=== PATIENT | male | born 1990 | race Caucasian/White ===

== ENCOUNTER 2016-11-15 23:38 | Emergency (ER) | payer SELFPAY ==
[~2016-11-15] VITALS: Ht 182.9 cm; Wt 90.7 kg
[2016-11-16] MEDS ORDERED: CEPH-264 PO
[2016-11-16] MEDS ORDERED: SULF1TAB24 PO
--- NOTE | 2016-11-16 | PHYS DOC ---
Adult General Chief Complaint Chief Complaint: SKIN PROBLEM HPI HPI Patient is a 26 year old M who presents with a left axillary abscess. Patient states that one of his friends who is a nurse used a scalpel and lanced it at home prior to coming in. Patient states he did get purulent drainage from it. Patient came in for further evaluation. Patient has no other symptoms. Patient denies any fevers. Patient denies any chest pain or shortness of breath. Patient states the abscesses that if the past 3 days to grow in size. Patient states she's never had symptoms like this before. Review of Systems Review of Systems GEN: Denies fevers, chills, sweats HEENT: Denies blurred vision, sore throat CV: Denies chest pain RESP: Denies shortness of air, cough GI: Denies n/v/d NEURO: Denies confusion, dizziness MSK: Left axillary abscess Physical Exam Physical Exam GEN.: No apparent distress. Alert and oriented. HEENT: Head is normocephalic, atraumatic NECK: Supple. LUNGS: CTAB. HEART: RRR, S1, S2 present. Peripheral pulses intact ABDOMEN: Soft, nontender. Positive bowel sounds. EXTREMITIES: Without any cyanosis. The axillary region there is a half centimeter incision with bloody discharge and approximately 3 cm of induration with no area of fluctuance NEUROLOGIC: Normal speech, normal tone PSYCHIATRIC: Normal affect, normal mood. SKIN: No ulcerations EKG EKG [] Radiology/Procedures Radiology/Procedures [] Course & Med Decision Making Course & Med Decision Making Pertinent Labs and Imaging studies reviewed. (See chart for details) MDM: After reviewing the chart, CC/HPI/PMH, physical exam, since the patient are had an incision and drainage done at home prior to coming in and there was no area of fluctuance felt on exam and just induration I did not probe the area further. I placed the patient on Keflex and Bactrim and recommended he follow- up with his PCP for further evaluation and management. Additional verbal discharge instructions were provided to the patient and that if symptoms get worse or any new symptoms arise that are worrisome to the patient he is to return to the emergency room immediately [] Dragon Disclaimer Dragon Disclaimer This chart was dictated in whole or in part using Voice Recognition software in a busy, high-work load, and often noisy Emergency Department environment. It may contain unintended and wholly unrecognized errors or omissions. Departure Departure: Impression: Primary Impression: Abscess of left axilla Disposition: HOME, SELF-CARE Condition: STABLE Patient Instructions: Abscess, Care After Additional Instructions: Please follow up with her family doctor next one to 2 days Scripts Cephalexin (KEFLEX) 500 Mg Capsule 1 CAP PO TID, #21 CAP Prov: PATT LLANOS DO 11/16/16 Sulfamethoxazole/Trimethoprim (BACTRIM DS TABLET) 1 Each Tablet 1 TAB PO BID, #14 TAB Prov: PATT LLANOS DO 11/16/16 PATT LLANOS DO Nov 16, 2016 00:00
== END 2016-11-16 00:13 | disposition home or self-care (01) ==
LOC: ER 23:38
DX: L02.412 Cutaneous abscess of left axilla (principal)
CPT/HCPCS: 99283